=== PATIENT | female | born 1960 | race Caucasian/White ===

== ENCOUNTER → 2021-05-13 13:45 | Outpatient (CLI) | payer BC, SELFPAY ==
--- NOTE | ~2021-05-13 | XR_ITS ---
EXAMINATION: XR hand RT min 3V EXAM DATE: 05/13/2021 14:17 INDICATION: Right hand stiffness and swelling. TECHNIQUE: Right hand frontal, lateral and oblique projections obtained and reviewed. There is no pr ior study for comparison. FINDINGS: Right metacarpal bones are unremarkable. There is severe 1st carpometacarpal joint primary osteoarthritis. There is moderate 5th DIP joint primary osteoarthritis. Less osteoarthritis of othe r distal interphalangeal joints. There are no acute fractures or dislocations identified. There is n o subcutaneous gas. The soft tissue is unremarkable. There are no radiopaque foreign bodies. 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 Reviewed, dictated and finalized at location A.
== END ==
PROVIDERS: Visit Provider Nurse Practitioner
DX: M25.641 Stiffness of right hand, not elsewhere classified (principal); M79.89 Other specified soft tissue disorders; M19.041 Primary osteoarthritis, right hand
CPT/HCPCS: 73130

== ENCOUNTER 2025-07-19 08:24 | Outpatient (CLI) | payer BC, SELFPAY ==
--- NOTE | ~2025-07-19 | XR_ITS ---
EXAMINATION: XR lumbar spine 2-3V DATE: 07/19/2025 09:04 INDICATION: Low back pain TECHNIQUE: 3 images of the lumbar spine were obtained COMPARISON: None. FINDINGS: Bones appear osteopenic. Moderate to severe levoconvex curvature of the lower thoracic and lumbar spine. Clips project over the pelvis. There is bowel gas and stool projecting over the pelvis which limits evaluation. Evaluation is significantly limited due to the patient's imaging characteris tics. Probable grade 2/3 anterolisthesis of L5 on S1. Extensive degenerative change throughout the lumbar spine. IMPRESSION: 1. Evaluation is significantly limited. Probable grade 2/3 anterolisthesis of L5 on S1. 2. Extensive degenerative change throughout the lumbar spine. Consider a CT or MRI of the lumbar spine for further assessment. Reviewed, dictated and finalized at location Q. IMPRESSION: 1. Evaluation is significantly limited. Probable grade 2/3 anterolisthesis of L 5 on S1. 2. Extensive degenerative change throughout the lumbar spine. Consider a CT or MRI of the lumbar spine for further assessment.
== END 2025-07-19 08:25 | disposition home or self-care (01) ==
PROVIDERS: PCP Family Medicine; Visit Provider Nurse Practitioner Family
DX: M51.369 Other intervertebral disc degeneration, lumbar region without mention of lumbar back pain or lower extremity pain (principal)
CPT/HCPCS: 72100

== ENCOUNTER 2025-09-16 12:51 | Outpatient (CLI) | payer BC, SELFPAY ==
--- NOTE | ~2025-09-16 | MR_ITS ---
EXAMINATION: MR thoracic spine wo/w con DATE: 09/16/2025 14:07 INDICATION: Intervertebral disc degeneration, thoracic region. Back pain. TECHNIQUE: Magnetic resonance imaging (MRI) of the thoracic spine was performed without and with 15 mL MultiHance intravenous contrast. COMPARISON: None FINDINGS: There is 20 degrees levoscoliosis of upper thoracic spine and 32 degrees dextroscoliosis of mid thoracic spine. There is kyphosis of cervical spine. Vertebral body heights are normal. There is mildly decreased disc height from T3-T4 through T6-T7, moderately decreased disc height at T7-T8 and T8-T9, and mildly decreased disc height from T9-T10 through T12-L1. The discs are bulging at T7-T8 and T8-T9 with mild central canal stenosis. There is multilevel severe facet joint osteoarthritis. There is mild neural foraminal stenosis at multiple levels on either side. The spinal cord signal intensity is normal. IMPRESSION: 1. Moderate thoracic spondylosis. 2. Scoliosis. Reviewed, dictated and finalized at location E. STAYER
--- NOTE | ~2025-09-16 | MR_ITS ---
EXAMINATION: MR lumbar spine wo/w con DATE: 09/16/2025 14:07 INDICATION: Intervertebral disc degeneration, lumbar region. Mid to low back pain. TECHNIQUE: Magnetic resonance imaging (MRI) of the lumbar spine was performed without and with 15 mL MultiHance intravenous contrast. COMPARISON: Lumbar spine radiographs 07/19/2025 FINDINGS: There is 26 degrees levoscoliosis of thoracolumbar spine. There are chronic bilateral L5 pars defects. There is 5 mm anterolisthesis of L5 on S1. There is mild chronic height loss of L5 vertebral body posteriorly. There is 4 mm retrolisthesis of L1 on L2 and L2 on L3. There is mild chronic anterior wedging of L1 vertebral body. There is severely decreased disc height at L1-L2, L2-L3, L4-L5, and L5-S1. The distal spinal cord signal intensity is normal. The conus medullaris is at L1-L2. The following disc levels are specifically discussed: L1-L2: The disc is bulging. There is moderate right and mild left facet joint osteoarthritis. There is moderate right and mild left neural foraminal stenosis. There is mild central canal stenosis. L2-L3: The disc is bulging. There is mild bilateral facet joint osteoarthritis. There is moderate right and mild left neural foraminal stenosis. There is mild central canal stenosis. L3-L4: The disc is bulging. There is mild right and moderate left facet joint osteoarthritis. There is mild bilateral neural foraminal stenosis. There is mild central canal stenosis. L4-L5: The disc is bulging. There is moderate right and severe left facet joint osteoarthritis. There is mild right and moderate left neural foraminal stenosis. There is mild central canal stenosis. L5-S1: The disc is bulging and has an annular fissure. There is severe bilateral facet joint osteoarthritis. There is mild right and moderate left neural foraminal stenosis. There is mild central canal stenosis. IMPRESSION: 1. Severe lumbar spondylosis. 2. Chronic bilateral L5 pars defects with grade 1 anterolisthesis of L5 on S1. 3. Thoracolumbar levoscoliosis. Reviewed, dictated and finalized at location E. CORRECTIONS
== END 2025-09-16 12:52 | disposition home or self-care (01) ==
PROVIDERS: PCP Family Medicine; Visit Provider Nurse Practitioner Family
DX: M51.369 Other intervertebral disc degeneration, lumbar region without mention of lumbar back pain or lower extremity pain (principal); M47.894 Other spondylosis, thoracic region; M41.9 Scoliosis, unspecified; M47.896 Other spondylosis, lumbar region
CPT/HCPCS: 72157; 72158; A9577